=== PATIENT | female | born 1975 | race Two or more races ===

== ENCOUNTER 2016-12-28 01:59 | Emergency (ER) | payer MEDICAID, OTHER ==
[~2016-12-28] VITALS: Ht 162.6 cm; Wt 77.1 kg
[~2016-12-28 01:59] MED LIST: IBUPROFEN600 MG ORAL; LEXAPRO20 MG ORAL; LYRICA75 M1 ORAL; MACROBID100 MG ORAL; NORCO 10/3251 EA ORAL; VALIUM5 MG ORAL
[2016-12-28 02:18] VITALS: BP 108/73
[2016-12-28] MEDS ORDERED: AMOXICILLIN500 MG ORAL (02:25)
[2016-12-28] MEDS ORDERED: HYDROCODON-ACE1 EA15 ORAL (02:25)
--- NOTE | 2016-12-28 02:25 | Emergency Room Report ---
History of Present Illness General Chief Complaint: Toothache Source: Patient Present Illness HPI Is a 41-year-old female who presents with chief complaint of dental pain. His been onset for last 2 days. No fever chills no nausea no vomiting. She had a crown over that tooth. This was done by her brother who is a dentist in [place]. Denies any fever or chills. Pain is 10 out of 10. Worse with percussion and eating. No other complaint. Allergies: Coded Allergies: No Known Allergies (Unverified , 07/17/15) Patient History Past Medical History: see triage record, old chart reviewed Past Surgical History: other Pertinent Family History: none Social History: Denies: smoking Last Menstrual Period: 2 weeks ago Now: No Immunizations: other Reviewed Nursing Documentation: PMH: Agreed, PSxH: Agreed Nursing Documentation-PMH Hx Cardiac Problems: No Hx Cancer: No Hx Gastrointestinal Problems: No Hx Neurological Problems: No - Low back pain, Sciatica Review of Systems Eye: Denies: blurred vision, eye pain ENT: Denies: ear pain, nose congestion, throat swelling Respiratory: Denies: cough, shortness of breath Cardiovascular: Denies: chest pain, palpitations Gastrointestinal: Denies: abdominal pain, diarrhea, nausea, vomiting Musculoskeletal: Denies: back pain, joint pain Skin: Denies: rash Neurological: Denies: headache, numbness Endocrine: Denies: increased thirst, increased urine Hematologic/Lymphatic: Denies: easy bruising All Other Systems: negative except mentioned in HPI Physical Exam Vital Signs Date Time Temp Pulse Resp B/P Pulse Ox O2 Delivery O2 Flow Rate FiO2 12/28/16 02:01 97.9 81 16 108/73 99 Room Air vitals normal Sp02 EP Interpretation: reviewed, normal General Appearance: well appearing, no apparent distress, alert Head: normocephalic, atraumatic Eyes: bilateral eye EOMI, bilateral eye PERRL ENT: hearing grossly normal, normal pharynx, other - She has percussive tenderness over tooth #28. The crown is intact. There is no evidence of abscess. Neck: full range of motion, supple, no meningismus Respiratory: chest non-tender, lungs clear, normal breath sounds Cardiovascular #1: regular rate, rhythm, no murmur Gastrointestinal: normal bowel sounds, non tender, no mass, no organomegaly, no bruit, non-distended Musculoskeletal: back normal, gait/station normal, normal range of motion Psychiatric: mood/affect normal Skin: warm/dry Procedures Additional Procedure Procedure Narrative Procedure: dental block Indication: Dental pain Description: I injected locally around the tooth with 1% lidocaine with epinephrine. A total of 2 mL was injected. Good pain control. Medical Decision Making Diagnostic Impression: Primary Impression: Toothache ER Course Patient presents with dental pain. She is currently taking azithromycin for a sinus infection. She is antibiotics from [place]. According to her, her brother told her to switch antibiotics. We'll discharge home. Told patient that she need to see a dentist [facility]. She may be a root canal. No evidence of any abscess that can be I&D. We'll discharge home. Last Vital Signs Date Time Temp Pulse Resp B/P Pulse Ox O2 Delivery O2 Flow Rate FiO2 12/28/16 02:18 97.9 82 16 108/73 99 Room Air Status: improved Disposition: HOME, SELF-CARE Condition: Stable Scripts Hydrocodone/Acetaminophen 5-325* (HYDROCODONE/ACETAMINOPHEN 5-325*) 1 Each Tablet 1 TAB ORAL Q6H Y for For Pain, #15 TAB 0 Refills Prov: STEPHON GOMEZ M.D. 12/28/16 Amoxicillin* (AMOXIL*) 500 Mg Capsule 500 MG ORAL THREE TIMES A DAY, #21 CAP Prov: STEPHON GOMEZ M.D. 12/28/16 Patient Instructions: Dental Pain Additional Instructions: See a dentist [facility]. Return for fever, facial swelling, increasing pain or any concern. STEPHON GOMEZ M.D. Dec 28, 2016 02:25
[2016-12-28 02:32] VITALS: BP 108/73
== END 2016-12-28 02:33 | disposition home or self-care (01) ==
LOC: EMR 02:29
DX: K08.89 Other specified disorders of teeth and supporting structures (principal)
CPT/HCPCS: 99284

== ENCOUNTER 2017-06-10 20:29 | Emergency (ER) | payer OTHER ==
[~2017-06-10] VITALS: Ht 157.5 cm; Wt 68.0 kg
[~2017-06-10 20:29] MED LIST changes: +AMOXICILLIN500 MG ORAL; +HYDROCODON-ACE1 EA15 ORAL
[2017-06-10 20:52] VITALS: BP 106/73
[2017-06-10 21:42] LABS: BASOPHILS % (AUTO) 0.9 % (0.0-2.0); EOSINOPHILS % (AUTO) 1.4 % (0.0-3.0); LYMPHOCYTES % (AUTO) 25.5 % (20.0-45.0); MEAN CORPUSCULAR HEMOGLOBIN 30.4 PG (27.0-31.0); MEAN CORPUSCULAR HGB CONC 33.8 G/DL (32.0-36.0); MEAN CORPUSCULAR VOLUME 90 FL (80-99); MEAN PLATELET VOLUME 9.1 FL (6.5-10.1); MONOCYTES % (AUTO) 6.7 % (1.0-10.0); NEUTROPHILS % (AUTO) 65.7 % (45.0-75.0); PLATELET COUNT 185 K/UL (150-450); RED BLOOD COUNT 4.09 M/UL (4.20-5.40); RED CELL DISTRIBUTION WIDTH 11.2 % (11.6-14.8); WHITE BLOOD COUNT 6.3 K/UL (4.8-10.8)
[2017-06-10 21:59] LABS: TROPONIN I < 0.30 ng/mL (<=0.30)
[2017-06-10 22:00] LABS: ALANINE AMINOTRANSFERASE 10 U/L (3-33); ALBUMIN/GLOBULIN RATIO 1.6 (1.0-2.7); ANION GAP 12 (5-15); ASPARTATE AMINO TRANSFERASE 13 U/L (5-40); CALCIUM 8.9 mg/dL (8.6-10.2); CARBON DIOXIDE 27 mEQ/L (20-30); CHLORIDE 102 mEQ/L (98-107); CREATININE 0.8 mg/dL (0.5-0.9); GLOMERULAR FILTRATION RATE > 60 mL/min (>60); HEMOLYSIS 5; POTASSIUM 4.5 mEQ/L (3.4-4.9); SODIUM 141 mEQ/L (135-145)
[2017-06-10] MEDS ORDERED: Famotidine 20 MG/ 2ML VIAL IVP ONE (22:00)
[2017-06-10 22:11] LABS: CKMB < 1.5 ng/mL (< 3.8)
[2017-06-10] MEDS ORDERED: Dicyclomine HCl 10mg/5ml oral soln ORAL ONE (22:30)
[2017-06-10] MEDS ORDERED: Aspirin Baby 81mg ORAL ONE (22:45)
[2017-06-10] MEDS ORDERED: PRILOSEC OTC20 MG ORAL (22:52)
[2017-06-10] MEDS ORDERED: ASPIRIN EC325 MG ORAL (22:52)
[2017-06-10 22:54] VITALS: BP 98/67
[2017-06-10 23:05] VITALS: BP 98/67
--- NOTE | 2017-06-11 12:16 | Diagnostic Imaging Report ---
Indication: SOB Technique: One view of the chest Comparison: 09/20/2015 Findings: Lungs and pleural spaces are clear. Heart size is normal no significant change Impression: No acute process
--- NOTE | 2017-06-11 16:29 | Cardiology Report ---
APPROVED REPORT EKG Measurement Heart [id number] Normal sinus rhythm Normal ECG
--- NOTE | 2017-06-12 06:17 | Emergency Room Report ---
History of Present Illness General Chief Complaint: Chest Pain Source: Patient Present Illness HPI Patient is a 42-year-old female present after increased chest pain. Patient reported having prior history of anxiety pain was described as a tightness to her chest. The patient had no leg pain or swelling. She denied any fever. She had no prior cardiac disease. She reported having prior history of anxiety. The patient was note a prior history of depression. She is not known to be diabetic or hypertensive. She has no prior history of hypertension. She denied family history of early cardiac disease.The she reports having been previously diagnosed anxiety. She also been taking medications for acid reflux. Allergies: Coded Allergies: No Known Allergies (Unverified , 07/17/15) Patient History Past Medical History: see triage record Last Menstrual Period: MAY Now: No Reviewed Nursing Documentation: PMH: Agreed, PSxH: Agreed Nursing Documentation-PMH Past Medical History: No Stated History Hx Cardiac Problems: No Hx Cancer: No Hx Gastrointestinal Problems: No Hx Neurological Problems: No - Low back pain, Sciatica Review of Systems All Other Systems: negative except mentioned in HPI Physical Exam Vital Signs Date Time Temp Pulse Resp B/P Pulse Ox O2 Delivery O2 Flow Rate FiO2 06/10/17 20:34 98.1 92 18 106/73 99 Room Air Sp02 EP Interpretation: reviewed, normal General Appearance: normal inspection, well appearing, no apparent distress, alert, GCS 15, obese Head: atraumatic ENT: normal ENT inspection, hearing grossly normal, normal voice Neck: normal inspection, full range of motion, supple, no bony tend Respiratory: normal inspection, lungs clear, normal breath sounds, no respiratory distress, no retraction, no wheezing Cardiovascular #1: regular rate, rhythm, no edema Gastrointestinal: normal inspection, normal bowel sounds, non tender, soft, no guarding, no hernia Genitourinary: no CVA tenderness Musculoskeletal: normal inspection, back normal, normal range of motion Neurologic: normal inspection, alert, oriented x3, responsive, dry roaster III-XII nml as tested, speech normal Psychiatric: normal inspection, judgement/insight normal, mood/affect normal Skin: normal inspection, normal color, no rash Medical Decision Making Diagnostic Impression: Primary Impression: Nonspecific chest pain ER Course Patient presented for chest pain. Differential diagnosis included but was not limited to acute coronary syndrome, pulmonary embolism, pneumonia, aortic dissection, shingles, pneumothorax, aortic dissection, esophageal rupture, pericarditis. Because of complexity of patient's case laboratory testing and imaging studies were ordered. I laboratory studies are unremarkable. EKG interpreted by me showed normal sinus rhythm without acute ST or T wave changes. Rhythm strip was unremarkable. The patient was given GI cocktail. She had some improvement in her symptoms. The patient was additionally given some aspirin. The patient' HEART Pathway score was less than 3.The patient is advised to follow up with primary care doctor in 1-2 days. Patient is advised to return if any worsening condition or if any changes in status that are concerning.The patient was advised to have outpatient cardiac testing . Labs Test 06/10/17 21:10 06/10/17 22:00 White Blood Count 6.3 K/UL (4.8-10.8) Red Blood Count 4.09 M/UL (4.20-5.40) Hemoglobin 12.4 G/DL (12.0-16.0) Hematocrit 36.8 % (37.0-47.0) Mean Corpuscular Volume 90 FL (80-99) Mean Corpuscular Hemoglobin 30.4 PG (27.0-31.0) Mean Corpuscular Hemoglobin Concent 33.8 G/DL (32.0-36.0) Red Cell Distribution Width 11.2 % (11.6-14.8) Platelet Count 185 K/UL (150-450) Mean Platelet Volume 9.1 FL (6.5-10.1) Neutrophils (%) (Auto) 65.7 % (45.0-75.0) Lymphocytes (%) (Auto) 25.5 % (20.0-45.0) Monocytes (%) (Auto) 6.7 % (1.0-10.0) Eosinophils (%) (Auto) 1.4 % (0.0-3.0) Basophils (%) (Auto) 0.9 % (0.0-2.0) D-Dimer 308 ng/mL (<500) Sodium Level 141 mEQ/L (135-145) Potassium Level 4.5 mEQ/L (3.4-4.9) Chloride Level 102 mEQ/L (98-107) Carbon Dioxide Level 27 mEQ/L (20-30) Anion Gap 12 (5-15) Blood Urea Nitrogen 10 mg/dL (7-23) Creatinine 0.8 mg/dL (0.5-0.9) Estimat Glomerular Filtration Rate > 60 mL/min (>60) Glucose Level 118 mg/dL (74-106) Calcium Level 8.9 mg/dL (8.6-10.2) Total Bilirubin 0.3 mg/dL (0.0-1.2) Aspartate Amino Transf (AST/SGOT) 13 U/L (5-40) Alanine Aminotransferase (ALT/SGPT) 10 U/L (3-33) Alkaline Phosphatase 37 U/L (35-104) Total Creatine Kinase 58 U/L (26-140) Creatine Kinase MB < 1.5 ng/mL (< 3.8) Creatine Kinase MB Relative Index Troponin I < 0.30 ng/mL (<=0.30) Total Protein 7.0 g/dL (6.6-8.7) Albumin 4.4 g/dL (3.5-5.2) Globulin 2.6 g/dL Albumin/Globulin Ratio 1.6 (1.0-2.7) Urine HCG, Qualitative Negative EKG Diagnostic Results Rate: normal Rhythm: NSR ST Segments: no acute changes Last Vital Signs Date Time Temp Pulse Resp B/P Pulse Ox O2 Delivery O2 Flow Rate FiO2 06/10/17 23:05 98.1 73 16 98/67 100 Room Air Status: improved Disposition: HOME, SELF-CARE Condition: Stable Scripts Aspirin* (ASPIRIN EC*) 325 Mg Tablet. 325 MG ORAL DAILY, #30 TAB Prov: Ras Carrion 06/10/17 Omeprazole Magnesium (PRILOSEC OTC) 20 Mg Tablet. 20 MG ORAL DAILY, #30 TAB Prov: Ras Carrion 06/10/17 Patient Instructions: Nonspecific Chest Pain Ras Carrion Jun 12, 2017 06:17
== END 2017-06-10 23:05 | disposition home or self-care (01) ==
LOC: EMR 21:19
DX: R07.9 Chest pain, unspecified (principal)
CPT/HCPCS: 36415; 71010; 80053; 81025; 82550; 82553; 84484; 85025; 85379; 93005; 96374; 99284; S0028

== ENCOUNTER 2017-07-27 00:43 | Emergency (ER) | payer OTHER ==
[~2017-07-27] VITALS: Ht 157.5 cm; Wt 66.7 kg
[~2017-07-27 00:43] MED LIST changes: +ASPIRIN EC325 MG ORAL; +PRILOSEC OTC20 MG ORAL
[2017-07-27] MEDS ORDERED: CYMBALTA30 MG ORAL (01:08)
[2017-07-27] MEDS ORDERED: NUCYNTA50 MG PO (01:08)
[2017-07-27] MEDS ORDERED: LATUDA20 MG PO (01:08)
[2017-07-27 01:10] VITALS: BP 106/71
[2017-07-27] MEDS ORDERED: Norco 5mg/325mg tab ORAL ONE (02:45)
[2017-07-27 03:10] VITALS: BP 115/78
[2017-07-27] MEDS ORDERED: PERCOCET 5-3251 EACH ORAL (04:00)
[2017-07-27] MEDS ORDERED: NORCO 5-325 TA1 EACH ORAL (04:09)
[2017-07-27 04:25] VITALS: BP 118/74
--- NOTE | 2017-07-28 07:25 | Emergency Room Report ---
History of Present Illness General Chief Complaint: Pain Source: Patient Present Illness HPI [id number] walk-in with chronic sciatica, s/p LS spine diskectomy? 2-3 years ago Unable to connect with PMD, get refills of chronic pain meds Requesting refill of Creighton States she also takes PO morphine at home Denies lower extremity weakness, urinary/bowel incontinence, fever/chills Allergies: Coded Allergies: No Known Allergies (Unverified , 07/17/15) Patient History Past Medical History: other - Sciatica Past Surgical History: other - LS laminectomy Pertinent Family History: none Social History: Denies: smoking, alcohol use, drug use Last Menstrual Period: JUL 16 Now: No Immunizations: UTD Reviewed Nursing Documentation: PMH: Agreed, PSxH: Agreed Nursing Documentation-PMH Hx Cardiac Problems: No Hx Cancer: No Hx Gastrointestinal Problems: No Hx Neurological Problems: No - Low back pain, Sciatica, LAMINECTOMY Review of Systems All Other Systems: negative except mentioned in HPI Physical Exam Vital Signs Date Time Temp Pulse Resp B/P (MAP) Pulse Ox O2 Delivery O2 Flow Rate FiO2 07/27/17 01:04 98.2 77 18 106/71 98 Room Air Sp02 EP Interpretation: reviewed, normal General Appearance: normal inspection, well appearing, no apparent distress, alert, GCS 15, non-toxic Head: normocephalic, atraumatic Eyes: bilateral eye PERRL, bilateral eye EOMI ENT: normal ENT inspection, hearing grossly normal, normal voice Neck: normal inspection, full range of motion, supple, no bony tend Respiratory: normal inspection, lungs clear, normal breath sounds, no respiratory distress, no retraction, no wheezing Cardiovascular #1: regular rate, rhythm, no edema Gastrointestinal: normal inspection, normal bowel sounds, non tender, soft, no guarding, no hernia Genitourinary: no CVA tenderness Musculoskeletal: normal inspection, back normal, normal range of motion, Amy' s Sign negative Neurologic: normal inspection, alert, oriented x3, responsive, superintendent mechanical III-XII nml as tested, motor strength/tone normal, speech normal Psychiatric: normal inspection, judgement/insight normal, mood/affect normal Skin: normal inspection, normal color, no rash Medical Decision Making Diagnostic Impression: Primary Impression: Sciatica Qualified Codes: M54.31 - Sciatica, right side Additional Impression: Drug-seeking behavior ER Course Chronic sciatica VSS. Afebrile No focal neuro deficits No concerning symptoms for cord compression Requesting Rx for Creighton I said I would give Percocet Rx but patient adamant for Creighton Significant concern for drug seeking behavior PMD followup in 2-3 days Return to ER for worsening symptoms Last Vital Signs Date Time Temp Pulse Resp B/P (MAP) Pulse Ox O2 Delivery O2 Flow Rate FiO2 07/27/17 04:25 97.9 75 15 118/74 98 Room Air Status: improved Disposition: HOME, SELF-CARE Condition: Improved Scripts Hydrocodone Bit/Acetaminophen 5-325* (NORCO 5-325*) 1 Each Tablet 1 TAB ORAL Q8H Y for For Pain for 10 Days, #30 TAB 0 Refills Prov: ASTRID BRASWELL M.D. 07/27/17 Patient Instructions: Sciatica, [id number] Additional Instructions: - Follow up with your airbrush painter for refill of medications - Only go to ER for decreased strength of legs, inability to urinate, unable to walk due to sciatica pain ASTRID BRASWELL M.D. Jul 28, 2017 07:25
== END 2017-07-27 04:25 | disposition home or self-care (01) ==
LOC: EMR 01:25
DX: M54.31 Sciatica, right side (principal); Z76.5 Malingerer [conscious simulation]
CPT/HCPCS: 99283

== ENCOUNTER 2018-03-12 01:39 | Emergency (ER) | payer MEDICAID ==
[~2018-03-12] VITALS: Ht 157.5 cm; Wt 71.7 kg
[~2018-03-12 01:39] MED LIST changes: +CYMBALTA30 MG ORAL; +LATUDA20 MG PO; +NORCO 5-325 TA1 EACH ORAL; +NUCYNTA50 MG PO; +PERCOCET 5-3251 EACH ORAL
[2018-03-12] MEDS ORDERED: LORAZEPAM0.5 MG ORAL (01:56)
[2018-03-12 01:59] VITALS: BP 144/77
--- NOTE | 2018-03-12 02:07 | Emergency Room Report ---
History of Present Illness General Chief Complaint: Chest Pain Source: Patient, Medical Record Present Illness HPI This is a 42-year-old [place] female with a history of chronic back pain. She presents with chief complaint of chest pain. His epigastric area radiating to her back. His been ongoing problem for many months. She seen her DrRomero several times and was given lorazepam. She came in tonight because it radiating to her back. No nausea no vomiting. No exertional component. No diaphoresis. No shortness of breath. Pain is 7 out of 10. Allergies: Coded Allergies: No Known Allergies (Unverified , 07/17/15) Patient History Past Medical History: see triage record, old chart reviewed Past Surgical History: other Pertinent Family History: none Social History: Denies: smoking Last Menstrual Period: 03/08/18 Now: No : 3 Para: 2 Immunizations: other Reviewed Nursing Documentation: PMH: Agreed; PSxH: Agreed Nursing Documentation-PMH Hx Cardiac Problems: No Hx Cancer: No Hx Gastrointestinal Problems: No Hx Neurological Problems: No - Low back pain, Sciatica, LAMINECTOMY Review of Systems Eye: Denies: eye pain, blurred vision ENT: Denies: ear pain, nose congestion, throat swelling Respiratory: Denies: cough, shortness of breath Cardiovascular: Reports: chest pain; Denies: palpitations Gastrointestinal: Denies: abdominal pain, diarrhea, nausea, vomiting Musculoskeletal: Denies: back pain, joint pain Skin: Denies: rash Neurological: Denies: headache, numbness Endocrine: Denies: increased thirst, increased urine Hematologic/Lymphatic: Denies: easy bruising All Other Systems: negative except mentioned in HPI Physical Exam Vital Signs Date Time Temp Pulse Resp B/P (MAP) Pulse Ox O2 Delivery O2 Flow Rate FiO2 03/12/18 01:53 98.2 90 18 144/77 100 Room Air 98.2 vitals unremarkable Sp02 EP Interpretation: reviewed, normal General Appearance: well appearing, no apparent distress, alert Head: normocephalic, atraumatic Eyes: bilateral eye PERRL, bilateral eye EOMI ENT: hearing grossly normal, normal pharynx Neck: full range of motion, supple, no meningismus Respiratory: chest non-tender, lungs clear, normal breath sounds Cardiovascular #1: regular rate, rhythm, no murmur Gastrointestinal: normal bowel sounds, non tender, no mass, no organomegaly, no bruit, non-distended Musculoskeletal: back normal, gait/station normal, normal range of motion Psychiatric: mood/affect normal Skin: warm/dry Medical Decision Making Diagnostic Impression: Primary Impression: Nonspecific chest pain ER Course Patient with atypical chest pain. No evidence of ACS, PE, dissection to name a few. This may be anxiety versus GI issue. Lab Results Impression labs normal EKG Diagnostic Results Rate: normal Rhythm: NSR ST Segments: no acute changes ASA given to the pt in ED: Yes Rhythm Strip Diag. Results Rhythm Strip Time: 02:06 EP Interpretation: yes Rate: 77 Rhythm: NSR, no PVC's, no ectopy Chest X-Ray Diagnostic Results Chest X-Ray Diagnostic Results : Chest X-Ray Ordered: Yes # of Views/Limited/Complete: 1 View Indication: Chest Pain EP Interpretation: Yes Interpretation: no consolidation, no effusion, no pneumothorax, no acute cardiopulmonary disease Impression: No acute disease Electronically Signed by: Adán Bean MD Last Vital Signs Date Time Temp Pulse Resp B/P (MAP) Pulse Ox O2 Delivery O2 Flow Rate FiO2 03/12/18 01:59 98.2 86 18 144/77 100 Room Air 98.2 Status: improved Disposition: HOME, SELF-CARE Condition: Stable Scripts Omeprazole Magnesium (PRILOSEC OTC) 20 Mg Tablet. 20 MG ORAL DAILY, #30 TAB Prov: ADÁN BEAN M.D. 03/12/18 Patient Instructions: Nonspecific Chest Pain Additional Instructions: Follow-up your doctor in 7 days. Return if symptom worsen. You may benefit from referral to see a GI doctor for endoscopy. ADÁN BEAN M.D. Mar 12, 2018 02:07
[2018-03-12] MEDS ORDERED: Mylanta II UD 30ml ORAL ONE (02:15)
[2018-03-12] MEDS ORDERED: Aspirin Baby 81mg ORAL ONE (02:15)
[2018-03-12] MEDS ORDERED: Lidocaine 2% Visc 15ml soln ORAL ONE (02:15)
[2018-03-12 02:16] LABS: BASOPHILS % (AUTO) 1.1 % (0.0-2.0); EOSINOPHILS % (AUTO) 1.7 % (0.0-3.0); HEMATOCRIT 36.8 % (37.0-47.0); HEMOGLOBIN 12.1 G/DL (12.0-16.0); MEAN CORPUSCULAR VOLUME 84 FL (80-99); MONOCYTES % (AUTO) 7.7 % (1.0-10.0); NEUTROPHILS % (AUTO) 55.5 % (45.0-75.0); PLATELET COUNT 232 K/UL (150-450); RED BLOOD COUNT 4.38 M/UL (4.20-5.40); RED CELL DISTRIBUTION WIDTH 12.3 % (11.6-14.8)
[2018-03-12 02:28] LABS: ANION GAP 7 mmol/L (5-15); BLOOD UREA NITROGEN 14 mg/dL (7-18); CALCIUM 8.9 MG/DL (8.5-10.1); CARBON DIOXIDE 26 MMOL/L (21-32); CHLORIDE 103 MMOL/L (98-107); POTASSIUM 3.7 MMOL/L (3.5-5.1); SODIUM 136 MMOL/L (136-145)
[2018-03-12 02:29] LABS: APPEARANCE,URINE SLIGHTLY CLOUDY; BILIRUBIN, URINE NEGATIVE (NEGATIVE); COLOR,URINE YELLOW; GLUCOSE, URINE (UA) NEGATIVE (NEGATIVE); KETONES,URINE NEGATIVE (NEGATIVE); LEUKOCYTE ESTERASE ,URINE 1+ (NEGATIVE); NITRITE,URINE NEGATIVE (NEGATIVE); PH,URINE 5 (4.5-8.0); PROTEIN,URINE 2+ (NEGATIVE); UROBILINOGEN,URINE NORMAL MG/DL (0.0-1.0)
[2018-03-12 02:41] LABS: ALANINE AMINOTRANSFERASE 21 U/L (12-78); ALBUMIN 4.1 G/DL (3.4-5.0); ALKALINE PHOSPHATASE 40 U/L (46-116); ASPARTATE AMINO TRANSFERASE 15 U/L (15-37); BILIRUBIN,TOTAL 0.3 MG/DL (0.2-1.0); CKMB 0.5 NG/ML (0.0-3.6); CREATINE KINASE 100 U/L (26-308)
[2018-03-12] MEDS ORDERED: PRILOSEC OTC20 MG ORAL (02:48)
[2018-03-12 02:51] VITALS: BP 120/79
[2018-03-12 02:59] VITALS: BP 120/79
--- NOTE | 2018-03-12 10:40 | Diagnostic Imaging Report ---
Indication: Chest pain Technique: One view of the chest Comparison: 06/10/2017 Findings: Lungs and pleural spaces are clear. Heart size is normal. No significant change Impression: No acute process
--- NOTE | 2018-03-12 21:18 | Cardiology Report ---
APPROVED REPORT EKG Measurement Heart [id number] Normal sinus rhythm Junctional ST depression, probably normal Borderline ECG
== END 2018-03-12 03:01 | disposition home or self-care (01) ==
LOC: EMR 02:33
DX: R07.89 Other chest pain (principal)
CPT/HCPCS: 36415; 71045; 80053; 80307; 81003; 81025; 82550; 82553; 84484; 85025; 93005; 99283

== ENCOUNTER 2018-05-15 21:06 | Emergency (ER) | payer MEDICAID ==
[~2018-05-15] VITALS: Ht 157.5 cm; Wt 75.3 kg
[~2018-05-15 21:06] MED LIST changes: +LORAZEPAM0.5 MG ORAL
[2018-05-15] MEDS ORDERED: CYMBALTA30 MG ORAL (21:22)
[2018-05-15] MEDS ORDERED: REXULTI2 MG PO (21:22)
[2018-05-15] MEDS ORDERED: IBUPROFEN600 MG ORAL (21:22)
[2018-05-15 21:40] VITALS: BP 141/87
[2018-05-15] MEDS ORDERED: Ketorolac 30mg Inj IM ONE (21:45)
[2018-05-15] MEDS ORDERED: oxyCODONE HCL/Acetaminophen 5/325mg ORAL ONE (21:45)
--- NOTE | 2018-05-15 21:49 | Emergency Room Report ---
History of Present Illness General Chief Complaint: Edema Source: Patient Present Illness HPI 43-year-old female with a history of sciatica, depression, endometriosis presents with bilateral lotion edema to the distal tibias for the last 3 days as well as severe right buttock pain rating down right leg with a sensation of numbness down her right leg for the many weeks She reports she's had this symptom before as well and attributed to sciatica, which she's had laminectomy in the remote past as well. She denies chest pain, sugars breath, hemoptysis, syncope, recent travel, but does report she recently started norgestrel pills Allergies: Coded Allergies: No Known Allergies (Unverified , 07/17/15) Patient History Past Medical History: see triage record Last Menstrual Period: 03/11 Now: No : 2 Para: 2 Reviewed Nursing Documentation: PMH: Agreed; PSxH: Agreed Nursing Documentation-PMH Hx Cardiac Problems: No Hx Cancer: No Hx Gastrointestinal Problems: No History Of Psychiatric Problem: Yes - anxiety, depression Hx Neurological Problems: No - Low back pain, Sciatica, LAMINECTOMY Review of Systems All Other Systems: negative except mentioned in HPI Physical Exam Vital Signs Date Time Temp Pulse Resp B/P (MAP) Pulse Ox O2 Delivery O2 Flow Rate FiO2 05/15/18 21:15 98.7 90 18 141/87 98 Room Air 98.8 Sp02 EP Interpretation: reviewed, normal General Appearance: no apparent distress, alert, non-toxic Head: normocephalic Eyes: bilateral eye normal inspection, bilateral eye PERRL, bilateral eye EOMI ENT: normal ENT inspection, hearing grossly normal, normal pharynx, no angioedema, normal voice, moist mucus membranes Neck: normal inspection, full range of motion, supple, supple/symm/no masses Respiratory: chest non-tender, lungs clear, normal breath sounds, chest symmetrical, palpation of chest normal Cardiovascular #1: normal peripheral pulses, regular rate, rhythm, edema - 1+ b /l LE edema to distal tibias Cardiovascular #2: 2+ radial (R), 2+ radial (L) Gastrointestinal: normal inspection, non tender, soft, no mass, no guarding, no rebound Rectal: deferred Genitourinary: normal inspection, no CVA tenderness Musculoskeletal: back normal, gait/station normal, normal range of motion, non- tender, no calf tenderness, Amy's Sign negative Neurologic: alert, responsive, spray gunner III-XII nml as tested, motor strength/tone normal, SLR negative - + on RLE, sensory intact - in all 4 extremities, but patient reports it feels different in RLE when compared to LLE although there is sens, speech normal Psychiatric: judgement/insight normal, memory normal, mood/affect normal, no suicidal/homicidal ideation Skin: normal color, no rash, warm/dry, normal turgor Lymphatic: no adenopathy Medical Decision Making Diagnostic Impression: Primary Impression: Edema Additional Impression: Sciatica ER Course Patient with atraumatic pain, however this is acute on chronic pain, she is tried her home [place], Lyrica, Cymbalta without relief. The edema is very mild, I do not suspect DVT, but I we will obtain ultrasound to rule it out as I have no obvious explanation. Labs, US wnl, will dc home, dx sciatica with peripheral dependent edema EKG Diagnostic Results EKG Time: 22:01 EP Interpretation: No ST segment changes no T-wave inversions no LVH criteria Rate: normal Rhythm: NSR ST Segments: no acute changes ASA given to the pt in ED: No Rhythm Strip Diag. Results Rhythm Strip Time: 22:51 EP Interpretation: yes Rate: 75 Rhythm: NSR, no PVC's, no ectopy CT/MRI/US Diagnostic Results CT/MRI/US Diagnostic Results : Imaging Test Ordered: Duplex B/L LE Impression negative for dvt b/L LE Last Vital Signs Date Time Temp Pulse Resp B/P (MAP) Pulse Ox O2 Delivery O2 Flow Rate FiO2 05/15/18 21:40 98.8 90 18 141/87 98 Room Air 98.8 Disposition: HOME, SELF-CARE Condition: Stable ALTAF SANTIAGO M.D May 15, 2018 21:49
[2018-05-15 22:45] LABS: EOSINOPHILS % (AUTO) 2.5 % (0.0-3.0); HEMOGLOBIN 11.9 G/DL (12.0-16.0); LYMPHOCYTES % (AUTO) 34.1 % (20.0-45.0); MEAN CORPUSCULAR VOLUME 81 FL (80-99); MONOCYTES % (AUTO) 7.9 % (1.0-10.0); NEUTROPHILS % (AUTO) 54.6 % (45.0-75.0); PLATELET COUNT 230 K/UL (150-450); RED BLOOD COUNT 4.56 M/UL (4.20-5.40); RED CELL DISTRIBUTION WIDTH 11.9 % (11.6-14.8); WHITE BLOOD COUNT 8.3 K/UL (4.8-10.8)
[2018-05-15 22:52] LABS: ANION GAP 8 mmol/L (5-15); BLOOD UREA NITROGEN 13 mg/dL (7-18); CALCIUM 8.6 MG/DL (8.5-10.1); CARBON DIOXIDE 27 MMOL/L (21-32); CHLORIDE 104 MMOL/L (98-107); POTASSIUM 4.2 MMOL/L (3.5-5.1); SODIUM 139 MMOL/L (136-145)
[2018-05-15 23:03] LABS: ALANINE AMINOTRANSFERASE 20 U/L (12-78); ALBUMIN 3.8 G/DL (3.4-5.0); ALBUMIN/GLOBULIN RATIO 0.9 (1.0-2.7); ALKALINE PHOSPHATASE 26 U/L (46-116); ASPARTATE AMINO TRANSFERASE 13 U/L (15-37); BILIRUBIN,TOTAL 0.3 MG/DL (0.2-1.0)
[2018-05-15] MEDS ORDERED: PERCOCET 5-3251 EACH ORAL (23:52)
[2018-05-16 00:04] VITALS: BP 140/78
[2018-05-16 00:06] VITALS: BP 140/78
--- NOTE | 2018-05-20 15:31 | Cardiology Report ---
APPROVED REPORT EKG Measurement Heart [id number] Normal sinus rhythm Normal ECG
== END 2018-05-16 00:07 | disposition home or self-care (01) ==
LOC: EMR 21:49
DX: R60.0 Localized edema (principal); M54.31 Sciatica, right side; F41.9 Anxiety disorder, unspecified; F32.9 Major depressive disorder, single episode, unspecified
CPT/HCPCS: 36415; 80053; 83880; 85025; 93005; 96372; 99284; J1885

== ENCOUNTER 2018-07-30 22:16 | Emergency (ER) | payer MEDICAID, OTHER ==
[~2018-07-30] VITALS: Ht 157.5 cm; Wt 75.3 kg
[~2018-07-30 22:16] MED LIST changes: +REXULTI2 MG PO
[2018-07-30 22:40] VITALS: BP 122/69
--- NOTE | 2018-07-30 22:42 | Emergency Room Report ---
History of Present Illness General Chief Complaint: Upper Extremity Injury Source: Patient, Medical Record Present Illness HPI This is a 43 year female with a history of chronic pain. She presents with chief complaint of right shoulder pain. Onset was acute and occurred just prior to arrival. She was in the sofa with her son. He got up and somehow he hit the right shoulder. Since then she's been having pain. She took her pain medication not helping. No nausea no vomiting but worse with motion. Denies any other complaint. Pain is 10 out of 10. No deformity. Allergies: Coded Allergies: No Known Allergies (Unverified , 07/17/15) Patient History Past Medical History: see triage record, old chart reviewed Past Surgical History: other Pertinent Family History: none Social History: Denies: smoking Last Menstrual Period: UNK Now: No Immunizations: other Reviewed Nursing Documentation: PMH: Agreed; PSxH: Agreed Nursing Documentation-PMH Past Medical History: No Stated History Hx Cardiac Problems: No Hx Cancer: No Hx Gastrointestinal Problems: No History Of Psychiatric Problem: Yes - depression Hx Neurological Problems: No - Low back pain, Sciatica, LAMINECTOMY Review of Systems Eye: Denies: eye pain, blurred vision ENT: Denies: ear pain, nose congestion, throat swelling Respiratory: Denies: cough, shortness of breath Cardiovascular: Denies: chest pain, palpitations Gastrointestinal: Denies: abdominal pain, diarrhea, nausea, vomiting Musculoskeletal: Reports: joint pain; Denies: back pain Skin: Denies: rash Neurological: Denies: headache, numbness Endocrine: Denies: increased thirst, increased urine Hematologic/Lymphatic: Denies: easy bruising All Other Systems: negative except mentioned in HPI Physical Exam Vital Signs Date Time Temp Pulse Resp B/P (MAP) Pulse Ox O2 Delivery O2 Flow Rate FiO2 07/30/18 22:24 98.4 103 18 122/69 96 Room Air 98.4 vitals normal Sp02 EP Interpretation: reviewed, normal General Appearance: well appearing, no apparent distress, alert Head: normocephalic, atraumatic Eyes: bilateral eye PERRL, bilateral eye EOMI ENT: hearing grossly normal, normal pharynx Neck: full range of motion, supple, no meningismus Respiratory: chest non-tender, lungs clear, normal breath sounds Cardiovascular #1: regular rate, rhythm, no murmur Gastrointestinal: normal bowel sounds, non tender, no mass, no organomegaly, no bruit, non-distended Musculoskeletal: back normal, gait/station normal, normal range of motion, other - Right shoulder: There is no deformity. Sensation normal. Diffuse pain. Has pain with range of motion but able to abduct past 90. Neurologic: alert, oriented x3 Psychiatric: mood/affect normal Skin: warm/dry Procedures Splinting Splinting : Consent: Verbal Location: Right shoulder Pre-Made Type: Sling Pre-Proc Neuro Vasc Exam: normal Post-Proc Neuro Vasc Exam: normal Patient Tolerated: Well Complications: None Medical Decision Making Diagnostic Impression: Primary Impression: Right shoulder strain Qualified Codes: S46.911A - Strain of unspecified muscle, fascia and tendon at shoulder and upper arm level, right arm, initial encounter ER Course Patient presents with soft tissue injury. No evidence of any fracture dislocation. We'll discharge home. Other X-Ray Diagnostic Results Other X-Ray Diagnostic Results : X-Ray ordered: Right shoulder x-rays # of Views/Limited Vs Complete: 3 View Indication: Pain EP Interpretation: Yes Interpretation: no dislocation, no soft tissue swelling, no fractures Impression: No acute disease Electronically Signed by: Adán Bean MD Last Vital Signs Date Time Temp Pulse Resp B/P (MAP) Pulse Ox O2 Delivery O2 Flow Rate FiO2 07/30/18 22:24 98.4 103 18 122/69 96 Room Air 98.4 Status: improved Disposition: HOME, SELF-CARE Condition: Stable Scripts Ibuprofen* (MOTRIN*) 600 Mg Tablet 600 MG ORAL THREE TIMES A DAY, #30 TAB 0 Refills Prov: ADÁN BEAN M.D. 07/30/18 Referrals: [facility],REFERRING (PCP) Additional Instructions: Ice pack to the area. Wear sling as needed. Follow-up with your doctor in 7 days. If not better, you may need an MRI of the shoulder. Return of worse. ADÁN BEAN M.D. Jul 30, 2018 22:42
[2018-07-30] MEDS ORDERED: Ketorolac 60mg Inj IM ONE (22:45)
[2018-07-30] MEDS ORDERED: IBUPROFEN600 MG ORAL (23:04)
[2018-07-30 23:13] VITALS: BP 122/69
--- NOTE | 2018-07-31 09:42 | Diagnostic Imaging Report ---
Indication: Pain Findings: 3 views of the right shoulder were obtained. No acute fractures, malalignment, erosions or periostitis are identified. Soft tissues are unremarkable. Impression: Negative for acute injury
== END 2018-07-30 23:15 | disposition home or self-care (01) ==
LOC: EMR 22:34
DX: S46.811A Strain of other muscles, fascia and tendons at shoulder and upper arm level, right arm, initial encounter (principal); M25.511 Pain in right shoulder; G89.29 Other chronic pain; W50.0XXA Accidental hit or strike by another person, initial encounter; Y93.89 Activity, other specified; Y92.018 Other place in single-family (private) house as the place of occurrence of the external cause; Y99.9 Unspecified external cause status
CPT/HCPCS: 96374; 99284

== ENCOUNTER 2018-08-23 01:10 | Emergency (ER) | payer OTHER ==
[~2018-08-23] VITALS: Ht 157.5 cm; Wt 75.3 kg
[2018-08-23 01:33] VITALS: BP 144/89
[2018-08-23 01:47] VITALS: BP 139/88
[2018-08-23] MEDS ORDERED: NORVASC5 MG ORAL (01:47)
--- NOTE | 2018-08-23 01:48 | Emergency Room Report ---
History of Present Illness General Chief Complaint: Hypertension Source: Patient Present Illness HPI This a 43-year-old female with history of endometriosis. She was placed on control pill by her renewals representative. 4 days ago she was started on Lupron. Since then she said her blood pressure has been elevated. Blood pressures has been running systolic in the 150-160 at home. No headache. No fever chills but no nausea no vomiting. No chest pain. Demented better. Nothing made it worse. Allergies: Coded Allergies: No Known Allergies (Unverified , 07/17/15) Patient History Past Medical History: see triage record, old chart reviewed Past Surgical History: none Pertinent Family History: none Social History: Denies: smoking Last Menstrual Period: 12/2017 Now: No : 2 Para: 2 Immunizations: other Reviewed Nursing Documentation: PMH: Agreed; PSxH: Agreed Nursing Documentation-PMH Past Medical History: No History, Except For Hx Cardiac Problems: No Hx Cancer: No Hx Gastrointestinal Problems: No Hx Neurological Problems: No - Low back pain, Sciatica, LAMINECTOMY Review of Systems Eye: Denies: eye pain, blurred vision ENT: Denies: ear pain, nose congestion, throat swelling Respiratory: Denies: cough, shortness of breath Cardiovascular: Denies: chest pain, palpitations Gastrointestinal: Denies: abdominal pain, diarrhea, nausea, vomiting Musculoskeletal: Denies: back pain, joint pain Skin: Denies: rash Neurological: Denies: headache, numbness Endocrine: Denies: increased thirst, increased urine Hematologic/Lymphatic: Denies: easy bruising All Other Systems: negative except mentioned in HPI Physical Exam Vital Signs Date Time Temp Pulse Resp B/P (MAP) Pulse Ox O2 Delivery O2 Flow Rate FiO2 08/23/18 01:14 98.0 86 16 157/93 97 98.1 08/23/18 01:33 Room Air vitals with high blood pressure Sp02 EP Interpretation: reviewed, normal General Appearance: well appearing, no apparent distress, alert Head: normocephalic, atraumatic Eyes: bilateral eye PERRL, bilateral eye EOMI ENT: hearing grossly normal, normal pharynx Neck: full range of motion, supple, no meningismus Respiratory: chest non-tender, lungs clear, normal breath sounds Cardiovascular #1: regular rate, rhythm, no murmur Gastrointestinal: normal bowel sounds, non tender, no mass, no organomegaly, no bruit, non-distended Musculoskeletal: back normal, gait/station normal, normal range of motion Psychiatric: mood/affect normal Skin: warm/dry Medical Decision Making Diagnostic Impression: Primary Impression: Hypertension Qualified Codes: I10 - Essential (primary) hypertension ER Course Resents with hypertension. This is probably secondary to effect of her hormonal therapy. Blood pressure now 139/88. Slightly elevated. No evidence of end organ damage. We'll discharge home. Last Vital Signs Date Time Temp Pulse Resp B/P (MAP) Pulse Ox O2 Delivery O2 Flow Rate FiO2 08/23/18 01:43 78 144/89 08/23/18 01:35 18 Room Air 08/23/18 01:33 100 08/23/18 01:14 98.0 98.1 Status: improved Disposition: HOME, SELF-CARE Condition: Stable Scripts Amlodipine Besylate (Norvasc) 5 Mg Tablet 5 MG ORAL DAILY, #30 TAB Prov: STEPHON GOMEZ M.D. 08/23/18 Referrals: NOT [facility]OSEN [facility]/,REFERRING (PCP) Additional Instructions: Follow-up with your doctor in 7 days for recheck. Take blood pressure medication if you're blood pressures over 130/90. Discussed with your renewals representative on whether or not he needs to be on hormonal therapy. Return if symptom worsen. STEPHON GOMEZ M.D. Aug 23, 2018 01:48
[2018-08-23 01:57] VITALS: BP 139/88
== END 2018-08-23 01:57 | disposition home or self-care (01) ==
LOC: EMR 01:23
DX: I10 Essential (primary) hypertension (principal); Z79.3 Long term (current) use of hormonal contraceptives
CPT/HCPCS: 99283

== ENCOUNTER 2018-10-24 00:36 | Emergency (ER) | payer OTHER ==
[~2018-10-24] VITALS: Ht 157.5 cm; Wt 74.8 kg
[~2018-10-24 00:36] MED LIST changes: +NORVASC5 MG ORAL
[2018-10-24] MEDS ORDERED: NKM (00:52)
[2018-10-24 00:53] VITALS: BP 125/77
[2018-10-24] MEDS ORDERED: Isovue-300 100ml vial INJ PRN (01:15)
[2018-10-24] MEDS ORDERED: Morphine Sulfate 4mg/ml Inj (IV/IM USE ONLY) IVP ONE ×2 (01:15→02:15)
[2018-10-24 01:32] LABS: BASOPHILS % (AUTO) 1.2 % (0.0-2.0); EOSINOPHILS % (AUTO) 2.1 % (0.0-3.0); HEMATOCRIT 40.1 % (37.0-47.0); HEMOGLOBIN 13.6 G/DL (12.0-16.0); MEAN CORPUSCULAR VOLUME 82 FL (80-99); MONOCYTES % (AUTO) 8.5 % (1.0-10.0); NEUTROPHILS % (AUTO) 43.1 % (45.0-75.0); PLATELET COUNT 227 K/UL (150-450); RED BLOOD COUNT 4.92 M/UL (4.20-5.40); RED CELL DISTRIBUTION WIDTH 11.1 % (11.6-14.8); WHITE BLOOD COUNT 6.2 K/UL (4.8-10.8)
[2018-10-24 01:41] LABS: ANION GAP 8 mmol/L (5-15); BLOOD UREA NITROGEN 20 mg/dL (7-18); CALCIUM 9.1 MG/DL (8.5-10.1); CARBON DIOXIDE 29 MMOL/L (21-32); CHLORIDE 102 MMOL/L (98-107); CREATININE 1.1 MG/DL (0.55-1.30); POTASSIUM 4.1 MMOL/L (3.5-5.1); SODIUM 139 MMOL/L (136-145)
[2018-10-24 01:45] LABS: ALANINE AMINOTRANSFERASE 56 U/L (12-78); ALBUMIN 4.3 G/DL (3.4-5.0); ALKALINE PHOSPHATASE 45 U/L (46-116); ASPARTATE AMINO TRANSFERASE 28 U/L (15-37); BILIRUBIN,TOTAL 0.2 MG/DL (0.2-1.0)
[2018-10-24 02:30] LABS: APPEARANCE,URINE CLEAR; BILIRUBIN, URINE NEGATIVE (NEGATIVE); COLOR,URINE PALE YELLOW; GLUCOSE, URINE (UA) NEGATIVE (NEGATIVE); KETONES,URINE NEGATIVE (NEGATIVE); LEUKOCYTE ESTERASE ,URINE 2+ (NEGATIVE); NITRITE,URINE NEGATIVE (NEGATIVE); PH,URINE 5 (4.5-8.0); PROTEIN,URINE NEGATIVE (NEGATIVE); UROBILINOGEN,URINE NORMAL MG/DL (0.0-1.0)
[2018-10-24] MEDS ORDERED: Ketorolac 30mg Inj IV ONE (03:15)
--- NOTE | 2018-10-24 03:20 | Diagnostic Imaging Report ---
EXAM: CT Abdomen and Pelvis With Intravenous Contrast CLINICAL HISTORY: Abdominal pain TECHNIQUE: Axial computed tomography images of the abdomen and pelvis with intravenous contrast. CTDI is 0.15, 15.03 mGy and DLP is 734 mGy-cm. One or more of the following dose reduction techniques were used: automated exposure control, adjustment of the mA and/or kV according to patient size, use of iterative reconstruction technique. Coronal and sagittal reformatted images were created and reviewed. COMPARISON: 04/01/16 FINDINGS: Lung bases: Mild atelectasis at the lung bases. ABDOMEN: Liver: The liver is unremarkable. Gallbladder and bile ducts: The gallbladder is unremarkable. No calcified stones. No ductal dilation. Pancreas: The pancreas is unremarkable. No ductal dilation. Spleen: The spleen is unremarkable. Adrenals: The adrenals are unremarkable. Kidneys and ureters: The kidneys are unremarkable. No hydronephrosis. Stomach and bowel: Evaluation of the stomach is limited secondary to poor distention. Some wall thickening of the stomach cannot be excluded. Evaluation of the rectosigmoid colon is limited secondary to poor distention. Some mild wall thickening of the rectosigmoid colon cannot be excluded. Moderate amount of stool in the cecum, ascending, and transverse colon. No evidence for significant bowel loop dilation to suggest an obstructive process. PELVIS: Appendix: The appendix is normal. Bladder: The bladder is grossly unremarkable. Reproductive: The uterus is grossly unremarkable. ABDOMEN and PELVIS: Intraperitoneal space: No free intraperitoneal fluid or free intraperitoneal gas. Bones/joints: Mild degenerative changes of the thoracolumbar spine. Status post surgical changes of the lower lumbar spine. No acute fracture. No dislocation. Soft tissues: Small umbilical hernia containing fat only. Vasculature: Unremarkable. No abdominal aortic aneurysm. Lymph nodes: Unremarkable. No enlarged lymph nodes. IMPRESSION: 1. Evaluation of the stomach is limited secondary to poor distention. Some wall thickening of the stomach cannot be excluded. 2. Evaluation of the rectosigmoid colon is limited secondary to poor distention. Some mild wall thickening of the rectosigmoid colon cannot be excluded. 3. Moderate amount of stool in the cecum, ascending, and transverse colon.
[2018-10-24] MEDS ORDERED: FLEET ENEMA133 ML RECTAL (03:39)
[2018-10-24] MEDS ORDERED: MAGNESIUM CITR296 M1 PO (03:39)
[2018-10-24] MEDS ORDERED: COLACE100 MG ORAL (03:39)
[2018-10-24 03:52] VITALS: BP 127/73
--- NOTE | 2018-10-24 05:01 | Emergency Room Report ---
History of Present Illness General Chief Complaint: Abdominal Pain Source: Patient, Family Member Present Illness HPI 43-year-old female presents ED for evaluation of abdominal pain. Started 4 hours prior to arrival. Sharp, 10 out of 10, localized to right lower quadrant. Denies fevers or chills. Denies nausea or vomiting. Denies chest pain or shortness of breath. No other aggravating relieving factors. Denies any other associated symptoms Allergies: Coded Allergies: No Known Allergies (Unverified , 07/17/15) Patient History Past Medical History: none Past Surgical History: other - back surgery Pertinent Family History: none Social History: Denies: smoking, alcohol use, drug use Last Menstrual Period: dec 2017 Now: No Immunizations: UTD Reviewed Nursing Documentation: PMH: Agreed; PSxH: Agreed Nursing Documentation-PMH Hx Cardiac Problems: No Hx Cancer: No Hx Gastrointestinal Problems: No Hx Neurological Problems: No - Low back pain, Sciatica, LAMINECTOMY Review of Systems All Other Systems: negative except mentioned in HPI Physical Exam Vital Signs Date Time Temp Pulse Resp B/P (MAP) Pulse Ox O2 Delivery O2 Flow Rate FiO2 10/24/18 00:48 99.0 92 123/72 99 10/24/18 00:53 21 Room Air Sp02 EP Interpretation: reviewed, normal General Appearance: alert, GCS 15, non-toxic, mild distress Head: normocephalic, atraumatic Eyes: bilateral eye normal inspection, bilateral eye PERRL ENT: hearing grossly normal, normal pharynx, no angioedema, normal voice Neck: full range of motion, supple/symm/no masses Respiratory: chest non-tender, lungs clear, normal breath sounds, speaking full sentences Cardiovascular #1: regular rate, rhythm, no edema Cardiovascular #2: 2+ carotid (R), 2+ carotid (L), 2+ radial (R), 2+ radial (L) , 2+ dorsalis pedis (R), 2+ dorsalis pedis (L) Gastrointestinal: normal bowel sounds, soft, non-distended, no guarding, no rebound, tenderness - RLQ Rectal: deferred Genitourinary: normal inspection, no CVA tenderness Musculoskeletal: back normal, gait/station normal, normal range of motion, non- tender Neurologic: alert, oriented x3, responsive, motor strength/tone normal, sensory intact, speech normal Psychiatric: judgement/insight normal, memory normal, mood/affect normal, no suicidal/homicidal ideation Reflexes: 3+ bicep (R), 3+ bicep (L), 3+ tricep (R), 3+ tricep (L), 3+ knee (R) , 3+ knee (L) Skin: normal color, no rash, warm/dry, well hydrated Lymphatic: no adenopathy Medical Decision Making Diagnostic Impression: Primary Impression: Abdominal pain Qualified Codes: R10.31 - Right lower quadrant pain Additional Impression: Constipation Qualified Codes: K59.00 - Constipation, unspecified ER Course Hospital Course 43-year-old F presents to ED with abdominal pain Differential diagnosis includes-appendicitis, cholecystitis, small bowel obstruction, gastritis, Clinical course Patient placed on stretcher. After initial history and physical I ordered labs , IV fluids, pain medications and CT Labs - no leukocytosis, electrolytes ok, LFTs normal, UA unremarkable CT -no evidence of appendicitis. significant fecal impaction noted I reviewed CURES; patient has extensive narcotic prescriptions filled on a monthly basis from multiple providers. Discussed findings with patient and family. Likely the significant constipation due to chronic narcotic use. Recommend stool softeners, enema and reduction of narcotic use. Recommend discussion with pain management Safe for discharge and close outpatient follow-up I feel this is a highly complex case requiring extensive working including EKG/ Rhythm strip, Xray/CT/US, Blood/urine lab work, repeat exams while in ED, and administration of strong opiates/narcotics for pain control, admission to hospital or close patient follow up. Diagnosis - constipation, abdominal pain Stable and discharged to home with Rx Mag citrate, Colace, enema. instructed on high-fiber diet. Followup with PMD. Return to ED if symptoms recur or worsen Labs Test 10/24/18 01:20 10/24/18 02:20 White Blood Count 6.2 K/UL (4.8-10.8) Red Blood Count 4.92 M/UL (4.20-5.40) Hemoglobin 13.6 G/DL (12.0-16.0) Hematocrit 40.1 % (37.0-47.0) Mean Corpuscular Volume 82 FL (80-99) Mean Corpuscular Hemoglobin 27.7 PG (27.0-31.0) Mean Corpuscular Hemoglobin Concent 34.0 G/DL (32.0-36.0) Red Cell Distribution Width 11.1 % (11.6-14.8) Platelet Count 227 K/UL (150-450) Mean Platelet Volume 8.5 FL (6.5-10.1) Neutrophils (%) (Auto) 43.1 % (45.0-75.0) Lymphocytes (%) (Auto) 45.0 % (20.0-45.0) Monocytes (%) (Auto) 8.5 % (1.0-10.0) Eosinophils (%) (Auto) 2.1 % (0.0-3.0) Basophils (%) (Auto) 1.2 % (0.0-2.0) Sodium Level 139 MMOL/L (136-145) Potassium Level 4.1 MMOL/L (3.5-5.1) Chloride Level 102 MMOL/L (98-107) Carbon Dioxide Level 29 MMOL/L (21-32) Anion Gap 8 mmol/L (5-15) Blood Urea Nitrogen 20 mg/dL (7-18) Creatinine 1.1 MG/DL (0.55-1.30) Estimat Glomerular Filtration Rate 53.9 mL/min (>60) Glucose Level 96 MG/DL (74-106) Calcium Level 9.1 MG/DL (8.5-10.1) Total Bilirubin 0.2 MG/DL (0.2-1.0) Aspartate Amino Transf (AST/SGOT) 28 U/L (15-37) Alanine Aminotransferase (ALT/SGPT) 56 U/L (12-78) Alkaline Phosphatase 45 U/L (46-116) Total Protein 8.8 G/DL (6.4-8.2) Albumin 4.3 G/DL (3.4-5.0) Globulin 4.5 g/dL Albumin/Globulin Ratio 1.0 (1.0-2.7) Lipase 113 U/L (73-393) Human Chorionic Gonadotropin, Quant 1 mIU/mL (1-6) Urine Color Pale yellow Urine Appearance Clear Urine pH 5 (4.5-8.0) Urine Specific [place] 1.020 (1.005-1.035) Urine Protein Negative (NEGATIVE) Urine Glucose (UA) Negative (NEGATIVE) Urine Ketones Negative (NEGATIVE) Urine Blood 3+ (NEGATIVE) Urine Nitrite Negative (NEGATIVE) Urine Bilirubin Negative (NEGATIVE) Urine Urobilinogen Normal MG/DL (0.0-1.0) Urine Leukocyte Esterase 2+ (NEGATIVE) Urine RBC 5-10 /HPF (0 - 2) Urine WBC 2-4 /HPF (0 - 2) Urine Squamous Epithelial Cells Moderate /LPF (NONE/OCC) Urine Bacteria Occasional /HPF (NONE) Urine HCG, Qualitative Negative (NEGATIVE) CT/MRI/US Diagnostic Results CT/MRI/US Diagnostic Results : Imaging Test Ordered: CT A/P Impression no evidence of appendicits. significant fecal impaction Last Vital Signs Date Time Temp Pulse Resp B/P (MAP) Pulse Ox O2 Delivery O2 Flow Rate FiO2 10/24/18 03:52 98.9 87 21 127/73 99 Room Air Status: improved Disposition: HOME, SELF-CARE Condition: Stable Scripts Na Phos,M-B/Na Phos,Di-Ba* (FLEET ENEMA*) 133 Ml Enema 133 ML RECTAL DAILY, #133 ML 0 Refills Prov: Burton Marcus MD 10/24/18 Docusate Sodium* (COLACE*) 100 Mg Capsule 100 MG ORAL THREE TIMES A DAY for 30 Days, CAP Prov: Burton Marcus MD 10/24/18 Magnesium Citrate (MAGNESIUM CITRATE) 296 Ml Solution 150 ML PO DAILY, #296 ML Prov: Burton Marcus MD 10/24/18 Patient Instructions: Constipation, Adult, [id number] Burton Marcus MD Oct 24, 2018 05:01
== END 2018-10-24 03:52 | disposition home or self-care (01) ==
LOC: EMR 01:38
DX: R10.31 Right lower quadrant pain (principal); K59.00 Constipation, unspecified
CPT/HCPCS: 36415; 74177; 80053; 81003; 81025; 83690; 84702; 85025; 96361; 96374; 96375; 96376; 99284; J1885; J2270; J2405; Q9967

== ENCOUNTER 2019-07-23 11:39 | Emergency (ER) | payer OTHER ==
[~2019-07-23] VITALS: Ht 157.5 cm; Wt 76.2 kg
[~2019-07-23 11:39] MED LIST changes: +COLACE100 MG ORAL; +FLEET ENEMA133 ML RECTAL; +KADIAN10 MG ORAL; +LUPRON DEPOT3.75 M1 IM; +LYRICA100 MG ORAL; +MAGNESIUM CITR296 M1 PO; +NITROFURANTOIN100 M2 ORAL; +NKM; +NORCO 10-325 T1 EACH ORAL; +PHENAZOPYRIDIN100 MG ORAL
[2019-07-23 11:49] VITALS: BP 123/73
[2019-07-23] MEDS ORDERED: OXYCODONE-ACET1 EAC5 ORAL (11:53)
[2019-07-23] MEDS ORDERED: OXYBUTYNIN CHLOR5 M1 ORAL (11:54)
[2019-07-23] MEDS ORDERED: CYMBALTA30 MG ORAL (11:54)
[2019-07-23] MEDS ORDERED: AMPICILLIN250 MG ORAL (11:55)
--- NOTE | 2019-07-23 11:58 | NUR ---
ED Nurse Note: Patient presents to ER due to abdominal pain, pointing mid abdominal area x 20 days; reports no N/V/D. Reports no fever or chills. Patient recently dx with UTI and taking antibiotics. Patient c/o vaginal discomfort and itching x 3 days. Patient awake, alert, oriented x 4. Regular, unlabored breathing noted.
[2019-07-23] MEDS ORDERED: Isovue-300 100ml vial INJ PRN (12:15)
--- NOTE | 2019-07-23 12:36 | Emergency Room Report ---
History of Present Illness General Chief Complaint: Abdominal Pain Source: Medical Record Present Illness HPI 44-year-old female with history of chronic back pain currently taking oxycodone here complaining of over 1 week of epigastric and left lower quadrant pain and bloating. Patient reports that her bowel movements are within normal limits denies any blood in her stool. Patient reports that she has had multiple episodes of H. pylori in the past had a recent endoscopy in 6 months ago which only diagnosed her with H. pylori. Patient denies any alcohol, smoking, and in intake of acute spicy and acidic food. Denies chest pain, shortness of breath, palpitation, nausea vomiting. Complains of acid reflux. Denies fever and chills. Patient was recently diagnosed with urinary tract infection and currently taking antibiotics ever since the start of antibiotic patient started having vaginal white clumpy discharge as well as pruritus. Patient last menstrual period was a month ago and regular. Denies past surgical history except for . Patient is a standing uncomfortably reporting the pain worsens as she lays down. Patient guarding in the epigastric and left lower quadrant. Allergies: Coded Allergies: No Known Allergies (Unverified , 07/17/15) Patient History Past Medical History: see triage record Past Surgical History: unable to obtain Pertinent Family History: none Last Menstrual Period: 07/05/19 Now: No Immunizations: UTD Reviewed Nursing Documentation: PMH: Agreed; PSxH: Agreed Nursing Documentation-PMH Past Medical History: No History, Except For Hx Cardiac Problems: No - Endometrosis Hx Hypertension: No Hx Pacemaker: No Hx Asthma: No Hx COPD: No Hx Diabetes: No Hx Cancer: No Hx Gastrointestinal Problems: No Hx Dialysis: No History Of Psychiatric Problem: No Hx Neurological Problems: Yes - Low back pain, Sciatica, LAMINECTOMY Hx Cerebrovascular Accident: No Hx Seizures: No Review of Systems All Other Systems: negative except mentioned in HPI Physical Exam Vital Signs Date Time Temp Pulse Resp B/P (MAP) Pulse Ox O2 Delivery O2 Flow Rate FiO2 07/23/19 11:44 98.4 79 16 123/73 (90) 96 Room Air Sp02 EP Interpretation: reviewed, normal General Appearance: alert, GCS 15, non-toxic, mild distress Head: normocephalic, atraumatic Eyes: bilateral eye normal inspection, bilateral eye PERRL ENT: hearing grossly normal, normal pharynx, no angioedema, normal voice Neck: full range of motion, supple/symm/no masses Respiratory: chest non-tender, lungs clear, normal breath sounds, no rhonchi, speaking full sentences Cardiovascular #1: regular rate, rhythm, no edema, no murmur Gastrointestinal: no mass, no organomegaly, no peritonitis, non-distended, no hernia, no pulsatile mass, no rebound, guarding - Left lower quadrant, other - Negative McBurney's and Rovsing's Rectal: deferred Genitourinary: no CVA tenderness Musculoskeletal: back normal, gait/station normal, normal range of motion, non- tender Neurologic: alert, oriented x3, responsive, motor strength/tone normal, sensory intact, speech normal Psychiatric: judgement/insight normal, memory normal, mood/affect normal, no suicidal/homicidal ideation Skin: no rash Lymphatic: no adenopathy Medical Decision Making PA Attestation All my diagnosis and treatment plans were reviewed ad discussed with my supervising physician Dr. Marcus Diagnostic Impression: Primary Impression: Pelvic congestion syndrome Additional Impression: Yeast infection ER Course 44-year-old female with history of chronic back pain currently taking oxycodone here complaining of over 1 week of epigastric and left lower quadrant pain and bloating. Patient reports that her bowel movements are within normal limits denies any blood in her stool. Patient reports that she has had multiple episodes of H. pylori in the past had a recent endoscopy in 6 months ago which only diagnosed her with H. pylori. Patient denies any alcohol, smoking, and in intake of acute spicy and acidic food. Denies chest pain, shortness of breath, palpitation, nausea vomiting. Complains of acid reflux. Denies fever and chills. Patient was recently diagnosed with urinary tract infection and currently taking antibiotics ever since the start of antibiotic patient started having vaginal white clumpy discharge as well as pruritus. Patient last menstrual period was a month ago and regular. Denies past surgical history except for . Patient is a standing uncomfortably reporting the pain worsens as she lays down. Patient guarding in the epigastric and left lower quadrant. Ddx considered but are not limited to: appendicitis, cholecystis, gastritis, gastroenteritis, UTI, pyelonephritis, SBO, diverticulitis, AL, complication with Vital signs: are WNL, pt. is afebrile H&PE are most consistent with: Pelvic congestion syndrome, yeast infection ORDERS: abdominal CT, abdominal pain set, EKG, pantoprazole, Tylenol, Diflucan ED INTERVENTIONS: NS bolus, pantoprazole, Zofran DISCHARGE: At this time pt. is stable for d/c to home. Will provide printed patient care instructions, and any necessary prescriptions. Care plan and follow up instructions have been discussed with the patient prior to discharge. Continue taking her antibiotic for your urinary tract infection take medication as directed follow-up with your primary care provider for referral to a specialist also due to your past positive history of H pylori to be tested again for H. pylori by your primary care physician. EKG Diagnostic Results Rate: normal Rhythm: NSR ST Segments: no acute changes Other Impression No acute ST changes CT/MRI/US Diagnostic Results CT/MRI/US Diagnostic Results : Imaging Test Ordered: CT abdomen pelvis with contrast Impression Pelvic congestion syndrome Last Vital Signs Date Time Temp Pulse Resp B/P (MAP) Pulse Ox O2 Delivery O2 Flow Rate FiO2 07/23/19 11:49 98.4 16 123/73 96 Room Air 07/23/19 11:44 79 Disposition: HOME, SELF-CARE Condition: Stable Patient Instructions: Abdominal Pain, Adult, Vaginal Yeast Infection, Adult Additional Instructions: Continue taking her antibiotic for your urinary tract infection take medication as directed follow-up with your primary care provider for referral to a specialist also due to your past positive history of H pylori to be tested again for H. pylori by your primary care physician. Benjamín Renteria Jul 23, 2019 12:36
[2019-07-23 12:57] LABS: APPEARANCE,URINE CLEAR; BILIRUBIN, URINE NEGATIVE (NEGATIVE); COLOR,URINE PALE YELLOW; GLUCOSE, URINE (UA) NEGATIVE (NEGATIVE); KETONES,URINE NEGATIVE (NEGATIVE); LEUKOCYTE ESTERASE ,URINE 3+ (NEGATIVE); NITRITE,URINE NEGATIVE (NEGATIVE); PH,URINE 7 (4.5-8.0); PROTEIN,URINE NEGATIVE (NEGATIVE); UROBILINOGEN,URINE NORMAL MG/DL (0.0-1.0)
[2019-07-23 13:00] LABS: EOSINOPHILS % (AUTO) 1.1 % (0.0-3.0); HEMATOCRIT 40.5 % (37.0-47.0); HEMOGLOBIN 13.5 G/DL (12.0-16.0); LYMPHOCYTES % (AUTO) 26.8 % (20.0-45.0); MEAN CORPUSCULAR VOLUME 89 FL (80-99); MONOCYTES % (AUTO) 8.6 % (1.0-10.0); NEUTROPHILS % (AUTO) 62.6 % (45.0-75.0); PLATELET COUNT 185 K/UL (150-450); RED BLOOD COUNT 4.53 M/UL (4.20-5.40); RED CELL DISTRIBUTION WIDTH 10.8 % (11.6-14.8); WHITE BLOOD COUNT 6.6 K/UL (4.8-10.8)
[2019-07-23 13:09] LABS: INR 1.1 (0.9-1.1)
[2019-07-23 13:17] LABS: ANION GAP 9 mmol/L (5-15); BLOOD UREA NITROGEN 11 mg/dL (7-18); CALCIUM 8.6 MG/DL (8.5-10.1); CARBON DIOXIDE 24 MMOL/L (21-32); CHLORIDE 108 MMOL/L (98-107); CREATININE 0.5 MG/DL (0.55-1.30); POTASSIUM 4.3 MMOL/L (3.5-5.1); SODIUM 141 MMOL/L (136-145)
[2019-07-23 13:22] LABS: ALANINE AMINOTRANSFERASE 28 U/L (12-78); ALBUMIN 3.9 G/DL (3.4-5.0); ALBUMIN/GLOBULIN RATIO 1.1 (1.0-2.7); ALKALINE PHOSPHATASE 57 U/L (46-116); ASPARTATE AMINO TRANSFERASE 26 U/L (15-37); BILIRUBIN,TOTAL 0.5 MG/DL (0.2-1.0)
--- NOTE | 2019-07-23 13:40 | NUR ---
ED Nurse Note: Patient taken down for CT scan.
[2019-07-23 14:09] VITALS: BP 134/69
--- NOTE | 2019-07-23 14:13 | NUR ---
ED Nurse Note: Patient returned from CT scan. Patient states decreased pain in the abdomen and tolerable at this time. Reports no N/V. No facial grimacing or guarding noted.
--- NOTE | 2019-07-23 14:15 | NUR ---
ED Nurse Note: IV to right hand remained intact. Reconnected IV fluids.
--- NOTE | 2019-07-23 14:22 | Diagnostic Imaging Report ---
Indication: Abdominal pain Technique: Continuous helical transaxial imaging of the abdomen and pelvis was obtained from the lung bases to the pubic symphysis during intravenous contrast administration. Coronal 2-D reformats were also obtained. Study obtained in a Siemens sensation [address] Automatic Exposure Control was utilized. Total Dose length Product (DLP): [address] Dose Index Volume (CTDIvol): 15.91 mGy Comparison: None Findings: The lung bases are clear. The liver, spleen, pancreas, gallbladder, adrenal glands and kidneys appear unremarkable. The appendix is normal. There is no ascites. Bowel gas pattern is nonobstructive. There is some prominence of the ovarian vein and increased vascularity in the periuterine region. Consider pelvic congestion syndrome. Urinary bladder is unremarkable. IMPRESSION: Some increase periuterine vessels and engorgement of the left ovarian vein. This is by no means definitive but does suggest the possibility of pelvic congestion syndrome. The examination is otherwise unremarkable. The CT scanner at [facility] is accredited by the [employer] and the scans are performed using dose optimization techniques as appropriate to a performed exam including Automatic Exposure control.
[2019-07-23] MEDS ORDERED: PANTOPRAZOLE SO40 MG ORAL (14:34)
[2019-07-23] MEDS ORDERED: TYLENOL325 MG ORAL (14:34)
[2019-07-23] MEDS ORDERED: FLUCONAZOLE100 MG ORAL (14:34)
--- NOTE | 2019-07-23 14:53 | NUR ---
ED Discharge Note: Patient is being discharged from medical care. D/C instructions/prescriptions given to patient. IV removed. All questions were answered. A copy of CT scan report given. Patient ambulated out with steady gait with all her belongings, accompained by spouse.
== END 2019-07-23 14:53 | disposition home or self-care (01) ==
LOC: EMR 13:21
DX: N94.89 Other specified conditions associated with female genital organs and menstrual cycle (principal); B37.9 Candidiasis, unspecified; G89.29 Other chronic pain; M54.9 Dorsalgia, unspecified
CPT/HCPCS: 36415; 74177; 80053; 80307; 81001; 81025; 83690; 84484; 85025; 85610; 85730; 86850; 86900; 86901; 93005; 96361; 96374; 96375; 99284; J2405; Q9967; S0028

== ENCOUNTER 2019-08-26 13:15 | Emergency (ER) | payer OTHER ==
[~2019-08-26] VITALS: Ht 157.5 cm; Wt 77.1 kg
[~2019-08-26 13:15] MED LIST changes: +AMPICILLIN250 MG ORAL; +FLUCONAZOLE100 MG ORAL; +OXYBUTYNIN CHLOR5 M1 ORAL; +OXYCODONE-ACET1 EAC5 ORAL; +PANTOPRAZOLE SO40 MG ORAL; +TYLENOL325 MG ORAL
[2019-08-26 13:33] VITALS: BP 118/67
--- NOTE | 2019-08-26 13:40 | NUR ---
ED Nurse Note: Patient walked into ED from home c/o headache and tongue sores for 1 week. patient is alert awake x4 ambulatory steady gait, breathing unlabored and even, speaking in full sentences.
--- NOTE | 2019-08-26 14:25 | NUR ---
Note odettetanya in EDM - 08/26/19 at 1442 by ROBERT ED Nurse Note: patient walked into ED from home c/o headache for 1 week. patient also reports soreness on her tongue for 1 week. patient is alert awake x4 ambulatory, breathing unlabored and even, speaking in full sentences.
[2019-08-26] MEDS ORDERED: Excedrin Migraine tab ORAL ONE (14:30)
--- NOTE | 2019-08-26 14:36 | NUR ---
ED Nurse Note: patient unable to provide urine sample at this time.
--- NOTE | 2019-08-26 15:20 | Emergency Room Report ---
History of Present Illness General Chief Complaint: Headache Source: Patient Present Illness HPI 44 YO Female presents to the ED c/o 09/02 in severity HARTLEY, Frontal and maxillary sinus pressure, rhinorrhea, and ST x 1 week with associated fevers and chills. pt. also reports pain and sensitivity to the back of her tongue. Denies Neck pain/stiffness. Denies pmhx other than urgency for which she sees a urologist for. Pt. denies recent travel or ill contacts. eating/swallowing exacerbates her pain. Denies sudden onset of her HARTLEY. Denies photophobia or dizziness. pt. denies cough. NO other aggravating or relieving factors at this time. Allergies: Coded Allergies: No Known Allergies (Unverified , 07/17/15) Patient History Past Medical History: see triage record Past Surgical History: none Pertinent Family History: none Now: No Immunizations: UTD Reviewed Nursing Documentation: PMH: Agreed; PSxH: Agreed Nursing Documentation-PMH Hx Cardiac Problems: No - Endometrosis Hx Hypertension: No Hx Pacemaker: No Hx Asthma: No Hx COPD: No Hx Diabetes: No Hx Cancer: No Hx Gastrointestinal Problems: No Hx Dialysis: No Hx Neurological Problems: Yes - Low back pain, Sciatica, LAMINECTOMY Hx Cerebrovascular Accident: No Hx Seizures: No Review of Systems All Other Systems: negative except mentioned in HPI Physical Exam Vital Signs Date Time Temp Pulse Resp B/P (MAP) Pulse Ox O2 Delivery O2 Flow Rate FiO2 08/26/19 13:33 99.0 89 17 118/67 (84) 99 Sp02 EP Interpretation: reviewed, normal General Appearance: no apparent distress, alert, GCS 15, non-toxic Head: normocephalic, atraumatic Eyes: bilateral eye normal inspection, bilateral eye PERRL ENT: hearing grossly normal, normal pharynx, no angioedema, normal voice, TMs + canals normal, uvula midline, moist mucus membranes, nasal congestion, tonsillar swelling, pharyngeal erythema, other - Frontal and maxillary sinus ttp. no stridor, no muffled voice. Neck: full range of motion, no meningismus, no bony tend Respiratory: chest non-tender, lungs clear, normal breath sounds, no rhonchi, no respiratory distress, no accessory muscle use, no wheezing, speaking full sentences Cardiovascular #1: regular rate, rhythm Musculoskeletal: gait/station normal, normal range of motion, non-tender Neurologic: alert, oriented x3, responsive, motor strength/tone normal, sensory intact, speech normal, grossly normal Psychiatric: judgement/insight normal Skin: no rash Lymphatic: no adenopathy Medical Decision Making PA Attestation Dr. Carrion is my supervising Physician whom patient management has been discussed with. Diagnostic Impression: Primary Impression: Pharyngitis, acute Qualified Codes: J02.0 - Streptococcal pharyngitis ER Course Pt. presents to the ED c/o : sore throat, tonsillar swelling, and nasal congestion x 2 days Ddx considered but are not limited to: pharyngitis, strep, [employer]INE [employer]PERATOR, ludwigs angina, URI Vital signs: are WNL, pt. is afebrile H&PE are most consistent with: pharyngitis presumed strep. ORDERS: None required at this time as the diagnosis is clinical ED INTERVENTIONS: none required at this time. DISCHARGE: At this time pt. is stable for d/c to home. Will provide printed patient care instructions, and any necessary prescriptions. Care plan and follow up instructions have been discussed with the patient prior to discharge. Last Vital Signs Date Time Temp Pulse Resp B/P (MAP) Pulse Ox O2 Delivery O2 Flow Rate FiO2 08/26/19 13:33 99.0 89 17 118/67 99 Disposition: HOME, SELF-CARE Condition: Stable Scripts Cetirizine Hcl/Pseudoephedrine (ZYRTEC-D TABLET) 1 Each Tab.er.12h 1 EACH ORAL Q12HR, #20 TAB Prov: Anitha Villarreal 08/26/19 Acetaminophen* (TYLENOL EXTRA STRENGTH*) 500 Mg Tablet 500 MG ORAL Q8H PRN for Prn Headache/Temp > 101, #30 TAB 0 Refills Prov: Anitha Villarreal 08/26/19 Lidocaine HCl 2% Viscous (Lidocaine HCl 2% Viscous) 100 Ml Solution 10 ML ORAL QID, #220 ML Prov: Anitha Villarreal 08/26/19 Amoxicillin/Potassium Clav 875-125* (AUGMENTIN 875-125 TABLET*) 1 Each Tablet 1 TAB ORAL TWICE A DAY for 10 Days, #20 TAB Prov: Anitha Villarreal 08/26/19 Referrals: KAILEY SABA,REFERRING (PCP) Patient Instructions: Sinus Headache, Sinusitis, Adult, [id number] Additional Instructions: Take medications as directed. Follow up with a Primary Care Provider in 3-5 days, even if your symptoms have resolved. --Please review list of primary care clinics, if you do not already have a primary care provider Return sooner to ED if new symptoms occur, or current symptoms become worse. - Please note that this Emergency Department Report was dictated using [employer] technology software, occasionally this can lead to erroneous entry secondary to interpretation by the dictation equipment. Anitha Villarreal Aug 26, 2019 15:20
[2019-08-26] MEDS ORDERED: ZYRTEC-D TABLE1 EACH ORAL (15:21)
[2019-08-26] MEDS ORDERED: TYLENOL EXTRA500 MG ORAL (15:21)
[2019-08-26] MEDS ORDERED: LIDOCAINE VISC100 ML ORAL (15:21)
[2019-08-26] MEDS ORDERED: AUGMENTIN 875-1 EAC1 ORAL (15:21)
[2019-08-26] MEDS ORDERED: Dexamethasone 4mg/ml vial IM ONE (15:30)
[2019-08-26 15:40] VITALS: BP 118/67
--- NOTE | 2019-08-26 15:42 | NUR ---
ER DISCHARGE NOTE: Patient is cleared to be discharged per RICARDO ANDREWS , pt is aox4, on room air, with stable vital signs. pt was given dc and prescription instructions, pt was able to verbalize understanding, pt id band removed without complications. pt is able to ambulate with steady gait. pt took all belongings.
== END 2019-08-26 15:40 | disposition home or self-care (01) ==
LOC: EMR 14:33
DX: J02.0 Streptococcal pharyngitis (principal); R51 Headache
CPT/HCPCS: 96372; J1100; Z7502; 99283

== ENCOUNTER 2019-09-02 22:26 | Emergency (ER) | payer OTHER ==
[~2019-09-02] VITALS: Ht 157.5 cm; Wt 76.7 kg
[~2019-09-02 22:26] MED LIST changes: +AUGMENTIN 875-1 EAC1 ORAL; +LIDOCAINE VISC100 ML ORAL; +TYLENOL EXTRA500 MG ORAL; +ZYRTEC-D TABLE1 EACH ORAL
[2019-09-02 23:40] VITALS: BP 123/80
--- NOTE | 2019-09-02 23:40 | NUR ---
ER DISCHARGE NOTE: Patient is cleared to be discharged per ERMD, pt is aox4, on room air, with stable vital signs. pt was given dc and prescription instructions, pt was able to verbalize understanding, pt id band removed without complications. pt is able to ambulate with steady gait. pt took all belongings.
--- NOTE | 2019-09-03 01:10 | Emergency Room Report ---
History of Present Illness General Chief Complaint: Pain Source: Patient Present Illness HPI Patient presents with complaints of tongue discomfort reports the back of the tongue was initially irritated about 2 weeks ago She now feels that she has discomfort to bilateral sides of the tongue denies any difficulty swallowing denies any change in voice Denies any fevers or chills denies any chest pain or shortness of breath Patient reports that she was here about a week ago was diagnosed with pharyngitis Denies any focal weakness denies any posterior neck pain Allergies: Coded Allergies: No Known Allergies (Unverified , 07/17/15) Patient History Past Medical History: see triage record Last Menstrual Period: 08/27/19 Now: No Reviewed Nursing Documentation: PMH: Agreed; PSxH: Agreed Nursing Documentation-PMH Hx Hypertension: No Hx Pacemaker: No Hx Asthma: No Hx COPD: No Hx Diabetes: No Hx Cancer: No Hx Gastrointestinal Problems: No Hx Dialysis: No Hx Neurological Problems: Yes - Low back pain, Sciatica, LAMINECTOMY Hx Cerebrovascular Accident: No Hx Seizures: No Review of Systems All Other Systems: negative except mentioned in HPI Physical Exam Vital Signs Date Time Temp Pulse Resp B/P (MAP) Pulse Ox O2 Delivery O2 Flow Rate FiO2 09/02/19 22:50 98.8 77 15 123/80 (94) 99 Room Air Sp02 EP Interpretation: reviewed, normal General Appearance: well appearing, no apparent distress Head: normocephalic, atraumatic Eyes: bilateral eye PERRL, bilateral eye EOMI ENT: hearing grossly normal, TMs + canals normal, uvula midline, other - Patient's tongue has normal appearance there was, 2 small lesions that essentially looked to be small papules, no obvious erythema or fluctuance Neck: full range of motion, supple, no meningismus, no bony tend Respiratory: lungs clear, normal breath sounds, no rhonchi, no respiratory distress, no retraction, no accessory muscle use Cardiovascular #1: normal peripheral pulses, regular rate, rhythm, no edema, no gallop, no JVD, no murmur Musculoskeletal: normal inspection Neurologic: oriented x3, responsive Psychiatric: mood/affect normal Skin: no rash Lymphatic: normal inspection, no adenopathy Medical Decision Making Diagnostic Impression: Primary Impression: contact reaction Additional Impression: Stomatitis ER Course Patient appears to have possible irritation stomatitis patient also had question possible reaction to medication she had taken at this time airway is patent there is no obvious allergic reaction Patient is discussed regarding Gargling and swishing with warm salt water avoiding citrus type food and following closely with her Primary physician she reports that she was seen by GI specialist And has had a referral to ENT initiated as well Last Vital Signs Date Time Temp Pulse Resp B/P (MAP) Pulse Ox O2 Delivery O2 Flow Rate FiO2 09/02/19 23:40 98.8 15 123/80 99 Room Air 09/02/19 22:50 77 Status: unchanged Disposition: HOME, SELF-CARE Condition: Stable Referrals: NON PHYSICIAN (PCP) [facility] Patient Instructions: Stomatitis, [id number] Additional Instructions: As discussed please try gargling and swishing with warm salt water 2 times a day. Avoid irritants such as mouthwash and other spicy food and continue with your ENT follow-up that was initiated by your specialist Patient is provided with the discharge instructions notified to follow up with primary doctor in the next 2-3 days otherwise return to the er with any worsening symptoms. Please note that this report is being documented using [employer] technology. This can lead to erroneous entry secondary to incorrect interpretation by the dictating instrument. Romy Hernandez DO Sep 03, 2019 01:10
== END 2019-09-02 23:50 | disposition home or self-care (01) ==
LOC: EMR 23:50
DX: K12.1 Other forms of stomatitis (principal)
CPT/HCPCS: 99282

== ENCOUNTER 2019-09-11 05:42 | Emergency (ER) | payer OTHER ==
[~2019-09-11] VITALS: Ht 157.5 cm; Wt 76.2 kg
--- NOTE | 2019-09-11 05:52 | NUR ---
ED Nurse Note: pt ambulated to ed c/o headache worsening since last night. with pain on tongue, side of cheek x 1 month. pt states she took excedrin and it did not alleviate pain.
[2019-09-11 05:53] VITALS: BP 112/83
[2019-09-11] MEDS ORDERED: Ketorolac 60mg Inj IM ONE (06:00)
[2019-09-11] MEDS ORDERED: AMITRIPTYLINE75 MG ORAL (06:07)
[2019-09-11] MEDS ORDERED: PREDNISONE20 MG ORAL (06:07)
[2019-09-11] MEDS ORDERED: IBUPROFEN600 MG ORAL (06:07)
--- NOTE | 2019-09-11 06:08 | Emergency Room Report ---
History of Present Illness General Chief Complaint: Headache Source: Patient Present Illness HPI 44-year-old with history of chronic pain. Patient presents with chief complaint of headache. Mostly right-sided. Been ongoing for 3 weeks. She has 2 prior visits here and did not mention anything about it. Pain is 9 out of 10. Throbbing in nature. She saw her primary care doctor who referred her to a pain specialist and a neurologist. Denies any other complaint. Nothing made it better. Pain is behind her right eye. No focal deficit. No fever chills. Gradual onset. Similar symptom in the past. Allergies: Coded Allergies: No Known Allergies (Unverified , 07/17/15) Patient History Past Medical History: see triage record, old chart reviewed Past Surgical History: none Pertinent Family History: none Social History: Denies: smoking Now: No Immunizations: other Reviewed Nursing Documentation: PMH: Agreed; PSxH: Agreed Nursing Documentation-PMH Past Medical History: No History, Except For Hx Hypertension: No Hx Pacemaker: No Hx Asthma: No Hx COPD: No Hx Diabetes: No Hx Cancer: No Hx Gastrointestinal Problems: No Hx Dialysis: No Hx Neurological Problems: Yes - Low back pain, Sciatica, LAMINECTOMY Hx Cerebrovascular Accident: No Hx Seizures: No Review of Systems Eye: Denies: eye pain, blurred vision ENT: Denies: ear pain, nose congestion, throat swelling Respiratory: Denies: cough, shortness of breath Cardiovascular: Denies: chest pain, palpitations Gastrointestinal: Denies: abdominal pain, diarrhea, nausea, vomiting Musculoskeletal: Denies: back pain, joint pain Skin: Denies: rash Neurological: Reports: headache; Denies: numbness Endocrine: Denies: increased thirst, increased urine Hematologic/Lymphatic: Denies: easy bruising All Other Systems: negative except mentioned in HPI Physical Exam Vital Signs Date Time Temp Pulse Resp B/P (MAP) Pulse Ox O2 Delivery O2 Flow Rate FiO2 09/11/19 05:47 98.2 72 18 112/83 (93) 97 Room Air Vitals normal Sp02 EP Interpretation: reviewed, normal General Appearance: well appearing, no apparent distress, alert Head: normocephalic, atraumatic Eyes: bilateral eye PERRL, bilateral eye EOMI ENT: hearing grossly normal, normal pharynx Neck: full range of motion, supple, no meningismus Respiratory: chest non-tender, lungs clear, normal breath sounds Cardiovascular #1: regular rate, rhythm, no murmur Gastrointestinal: normal bowel sounds, non tender, no mass, no organomegaly, no bruit, non-distended Musculoskeletal: back normal, gait/station normal, normal range of motion Psychiatric: mood/affect normal Medical Decision Making Diagnostic Impression: Primary Impression: Headache Qualified Codes: R51 - Headache ER Course This patient presents with headache. No evidence of bleed, meningitis or neoplastic process. Because is been ongoing for 3 weeks, I did a CT scan. Is negative. Will discharge home. CT/MRI/US Diagnostic Results CT/MRI/US Diagnostic Results : Imaging Test Ordered: CT head Impression Read by radiologist. Neg. Last Vital Signs Date Time Temp Pulse Resp B/P (MAP) Pulse Ox O2 Delivery O2 Flow Rate FiO2 09/11/19 05:53 98.2 76 18 112/83 97 Room Air Status: improved Disposition: HOME, SELF-CARE Condition: Stable Scripts Prednisone* (PREDNISONE*) 20 Mg Tablet 20 MG ORAL DAILY, #5 TAB Prov: Adán Bean MD 09/11/19 Amitriptyline HCl (ELAVIL*) 75 Mg Tablet 75 MG ORAL BEDTIME, #30 TAB Prov: Adán Bean MD 09/11/19 Ibuprofen* (MOTRIN*) 600 Mg Tablet 600 MG ORAL THREE TIMES A DAY, #30 TAB 0 Refills Prov: Adán Bean MD 09/11/19 Referrals: NON PHYSICIAN (PCP) Patient Instructions: General Headache Without Cause Additional Instructions: Follow-up with your doctor in 7 days. Return if symptoms worsen. Adán Bean MD Sep 11, 2019 06:08
--- NOTE | 2019-09-11 06:15 | NUR ---
ED Nurse Note: pt taken to CT scan
--- NOTE | 2019-09-11 06:28 | NUR ---
ED Nurse Note: pt returned from CT
[2019-09-11 06:45] VITALS: BP 117/86
--- NOTE | 2019-09-11 06:45 | NUR ---
ED Nurse Note: pt dc per ermd order. pt is aox4. presciption and dc instruction given. pt verbalized understanding. pt took all belongings vss. pt able to walk with steady gait and is accompanied by
--- NOTE | 2019-09-11 07:00 | Diagnostic Imaging Report ---
EXAM: CT Head Without Intravenous Contrast CLINICAL HISTORY: PAIN TECHNIQUE: Axial computed tomography images of the head brain without intravenous contrast. CTDI is 63 mGy and DLP is 1520 mGy-cm. One or more of the following dose reduction techniques were used: automated exposure control, adjustment of the mA and or kV according to patient size, use of iterative reconstruction technique. COMPARISON: July 17, 2015 FINDINGS: Brain: No acute intracranial hemorrhage. No CT evidence of acute infarct. No mass effect or midline shift. Patchy periventricular white matter hypodensities and involutional changes, more than expected for patient's age, stable. Ventricles: Unremarkable. No ventriculomegaly. Bones joints: Unremarkable. No acute fracture. Soft tissues: Unremarkable. Sinuses: Unremarkable as visualized. Mastoid air cells: Unremarkable as visualized. No mastoid effusion. IMPRESSION: No acute intracranial process. Involutional changes, more than expected for patient's age, stable.
== END 2019-09-11 06:45 | disposition home or self-care (01) ==
LOC: EMR 05:50
DX: R51 Headache (principal)
CPT/HCPCS: 70450; 96372; Z7502; 99284

== ENCOUNTER 2019-09-29 01:44 | Emergency (ER) | payer OTHER ==
[~2019-09-29] VITALS: Ht 152.4 cm; Wt 76.2 kg
[~2019-09-29 01:44] MED LIST changes: +AMITRIPTYLINE75 MG ORAL; +PREDNISONE20 MG ORAL
--- NOTE | 2019-09-29 02:01 | NUR ---
ED Nurse Note: pt walked in c/o generalized abd pain for about 6 hrs, pt reports nausea but denies vomiting nor diarrhea but reports increase in gas and reports bloating. denies constipation, pt reports she ate dinner last night and had bm yesterday around 12 pm, normal BM. noted tenderness on epigastric-mid abd area. pt Aa&ox4, gcs=15, skin warm and dry, resp even and unlabored on RA, reports nausea but no dry heaves nor vomiting at this time, will cont monitor. vss.
[2019-09-29] MEDS ORDERED: Lidocaine 2% Visc 15ml soln ORAL ONE (02:15)
[2019-09-29] MEDS ORDERED: Ketorolac 30mg Inj IV ONE (02:15)
[2019-09-29] MEDS ORDERED: Metoclopramide 10mg/2ml Inj IVP ONE (02:15)
[2019-09-29] MEDS ORDERED: Mylanta II UD 30ml ORAL ONE (02:15)
--- NOTE | 2019-09-29 02:20 | Emergency Room Report ---
History of Present Illness General Chief Complaint: Abdominal Pain Source: Patient, Medical Record Present Illness HPI Is a 44-year-old female well-known to this ER. She has history of chronic pain. Mostly migraine and abdominal pain. She is with chief complaint of abdominal pain. Onset for last 4 hours. Localized to the epigastric area. She says she felt very bloated. Nausea but no vomiting. Her Bentyl is not helping. No fever chills. No diarrhea. Pain is sharp and crampy in nature. 8 out of 10. Similar to previous episode. Nothing made it better. Nothing made it worse. Allergies: Coded Allergies: No Known Allergies (Unverified , 07/17/15) Patient History Past Medical History: see triage record, old chart reviewed Past Surgical History: other Pertinent Family History: none Social History: Denies: smoking Now: No Immunizations: other Reviewed Nursing Documentation: PMH: Agreed; PSxH: Agreed Nursing Documentation-PMH Past Medical History: No History, Except For Hx Hypertension: No Hx Pacemaker: No Hx Asthma: No Hx COPD: No Hx Diabetes: No Hx Cancer: No Hx Gastrointestinal Problems: No Hx Dialysis: No Hx Neurological Problems: Yes - Low back pain, Sciatica, LAMINECTOMY Hx Cerebrovascular Accident: No Hx Seizures: No Review of Systems Eye: Denies: eye pain, blurred vision ENT: Denies: ear pain, nose congestion, throat swelling Respiratory: Denies: cough, shortness of breath Cardiovascular: Denies: chest pain, palpitations Gastrointestinal: Reports: abdominal pain, nausea; Denies: diarrhea, vomiting Musculoskeletal: Denies: back pain, joint pain Skin: Denies: rash Neurological: Denies: headache, numbness Endocrine: Denies: increased thirst, increased urine Hematologic/Lymphatic: Denies: easy bruising All Other Systems: negative except mentioned in HPI Physical Exam Vital Signs Date Time Temp Pulse Resp B/P (MAP) Pulse Ox O2 Delivery O2 Flow Rate FiO2 09/29/19 01:53 98.4 80 18 110/77 (88) 97 Room Air Vitals normal Sp02 EP Interpretation: reviewed, normal General Appearance: well appearing, no apparent distress, alert Head: normocephalic, atraumatic Eyes: bilateral eye PERRL, bilateral eye EOMI ENT: hearing grossly normal, normal pharynx Neck: full range of motion, supple, no meningismus Respiratory: chest non-tender, lungs clear, normal breath sounds Cardiovascular #1: regular rate, rhythm, no murmur Gastrointestinal: no mass, no organomegaly, no bruit, non-distended, abnormal bowel sounds - Increase in epigastric area, tenderness - Epigastric tenderness Musculoskeletal: back normal, gait/station normal, normal range of motion Psychiatric: mood/affect normal Medical Decision Making Diagnostic Impression: Primary Impression: Abdominal pain Qualified Codes: R10.13 - Epigastric pain Additional Impression: UTI (urinary tract infection) Qualified Codes: N30.00 - Acute cystitis without hematuria ER Course Patient presents with epigastric pain. Better now. No evidence of acute abdomen or obstruction. She does have a urinary tract infection. Grew out E. coli is pansensitive in the past. Rocephin given here. Will discharge on antibiotics. Last Vital Signs Date Time Temp Pulse Resp B/P (MAP) Pulse Ox O2 Delivery O2 Flow Rate FiO2 09/29/19 02:04 80 18 Room Air 09/29/19 01:53 98.4 110/77 (88) 97 Status: improved Disposition: HOME, SELF-CARE Condition: Stable Scripts Nitrofurantoin Monohyd/M-Cryst* (MACROBID 100 MG*) 100 Mg Capsule 100 MG ORAL EVERY 12 HOURS, #14 CAP Prov: Adán Bean MD 09/29/19 Omeprazole Magnesium (PRILOSEC OTC) 20 Mg Tablet. 20 MG ORAL DAILY, #30 TAB Prov: Adán Bean MD 09/29/19 Referrals: KAILEY SABA,REFERRING (PCP) Patient Instructions: Abdominal Pain, Adult Additional Instructions: Follow-up with your doctor in 7 days. Return if worse. Adán Bean MD Sep 29, 2019 02:20
[2019-09-29 02:43] LABS: BASOPHILS % (AUTO) 0.7 % (0.0-2.0); EOSINOPHILS % (AUTO) 1.1 % (0.0-3.0); HEMATOCRIT 39.3 % (37.0-47.0); HEMOGLOBIN 13.3 G/DL (12.0-16.0); LYMPHOCYTES % (AUTO) 34.3 % (20.0-45.0); MEAN CORPUSCULAR VOLUME 87 FL (80-99); MONOCYTES % (AUTO) 8.7 % (1.0-10.0); NEUTROPHILS % (AUTO) 55.3 % (45.0-75.0); PLATELET COUNT 205 K/UL (150-450); RED BLOOD COUNT 4.52 M/UL (4.20-5.40); RED CELL DISTRIBUTION WIDTH 11.1 % (11.6-14.8); WHITE BLOOD COUNT 7.6 K/UL (4.8-10.8)
[2019-09-29 02:45] LABS: BILIRUBIN, URINE NEGATIVE (NEGATIVE); COLOR,URINE PALE YELLOW; GLUCOSE, URINE (UA) NEGATIVE (NEGATIVE); KETONES,URINE NEGATIVE (NEGATIVE); LEUKOCYTE ESTERASE ,URINE NEGATIVE (NEGATIVE); NITRITE,URINE NEGATIVE (NEGATIVE); PH,URINE 6 (4.5-8.0); PROTEIN,URINE 1+ (NEGATIVE); UROBILINOGEN,URINE NORMAL MG/DL (0.0-1.0)
[2019-09-29 02:49] LABS: ANION GAP 9 mmol/L (5-15); BLOOD UREA NITROGEN 17 mg/dL (7-18); CALCIUM 8.8 MG/DL (8.5-10.1); CARBON DIOXIDE 27 MMOL/L (21-32); CHLORIDE 106 MMOL/L (98-107); CREATININE 0.7 MG/DL (0.55-1.30); POTASSIUM 3.7 MMOL/L (3.5-5.1); SODIUM 142 MMOL/L (136-145)
[2019-09-29 02:53] LABS: ALANINE AMINOTRANSFERASE 28 U/L (12-78); ALBUMIN 3.6 G/DL (3.4-5.0); ALKALINE PHOSPHATASE 58 U/L (46-116); ASPARTATE AMINO TRANSFERASE 13 U/L (15-37); BILIRUBIN,TOTAL 0.3 MG/DL (0.2-1.0)
[2019-09-29 02:55] LABS: APPEARANCE,URINE SLIGHTLY CLOUDY
[2019-09-29] MEDS ORDERED: PRILOSEC OTC20 MG ORAL (03:06)
[2019-09-29] MEDS ORDERED: NITROFURANTOIN100 M2 ORAL (03:06)
[2019-09-29] MEDS ORDERED: cefTRIAXone 1 GM in NS 55 ML IVPB ONE (03:15)
[2019-09-29 03:30] VITALS: BP 110/77
[2019-09-29 03:40] VITALS: BP 110/77
--- NOTE | 2019-09-29 03:40 | NUR ---
ER DISCHARGE NOTE: Patient is cleared to be discharged per ERMD, pt is aox4, on room air, with stable vital signs. accompanied by family member. pt was given dc and prescription instructions, pt was able to verbalize understanding, pt id band and iv site removed without complications. pt is able to ambulate with steady gait. pt took all belongings.
== END 2019-09-29 03:40 | disposition home or self-care (01) ==
LOC: EMR 02:12
DX: R10.13 Epigastric pain (principal); N30.00 Acute cystitis without hematuria; M54.30 Sciatica, unspecified side; Z98.890 Other specified postprocedural states
CPT/HCPCS: 36415; 80053; 81003; 81025; 83690; 85025; 87086; 87181; 96361; 96365; 96375; J0696; J1885; J2765; Z7502; 99284; J7030